=== PATIENT | female | born 1970 | race Caucasian/White ===

== ENCOUNTER → 2017-01-19 | Outpatient (CLI) | payer OTHER | END | disposition home or self-care (01) | LOC: CFH 16:07 | PROVIDERS: ATTEND Obstetrics & Gynecology | DX: Z12.31 Encounter for screening mammogram for malignant neoplasm of breast (principal) | CPT/HCPCS: G0202 ==

== ENCOUNTER → 2018-03-03 | Outpatient (CLI) | payer OTHER | END | disposition home or self-care (01) | LOC: CFH 14:23 | PROVIDERS: ATTEND Obstetrics & Gynecology | DX: N63.24 Unspecified lump in the left breast, lower inner quadrant (principal); N60.02 Solitary cyst of left breast; N28.9 Disorder of kidney and ureter, unspecified | CPT/HCPCS: 77066 ==

== ENCOUNTER 2020-03-25 16:12 | Outpatient (CLI) | payer OTHER | END 2020-03-25 23:59 | disposition home or self-care (01) | LOC: CFH 16:12 | PROVIDERS: ATTEND Obstetrics & Gynecology | DX: Z12.31 Encounter for screening mammogram for malignant neoplasm of breast (principal) | CPT/HCPCS: 77067 ==

== ENCOUNTER 2021-04-17 13:21 | Outpatient (CLI) | payer OTHER | END 2021-04-17 23:59 | disposition home or self-care (01) | LOC: CFH 13:21 | PROVIDERS: ATTEND Obstetrics & Gynecology | DX: Z12.31 Encounter for screening mammogram for malignant neoplasm of breast (principal) | CPT/HCPCS: 77063; 77067 ==